=== PATIENT | female | born 1985 | race Caucasian/White ===

== ENCOUNTER 2016-08-21 17:56 | Outpatient (CLI) | payer MEDICARE | END 2016-08-21 19:58 | disposition home or self-care (01) | LOC: GENOP 17:56 | DX: O99.89 Other specified diseases and conditions complicating pregnancy, childbirth and the puerperium (principal); M54.5 Low back pain; R10.9 Unspecified abdominal pain; Z3A.24 24 weeks gestation of pregnancy | CPT/HCPCS: 81001; 82731; 83518; 94664; 94760; G0463 ==